=== PATIENT | female | born 1985 | race Hispanic/Latino ===

== ENCOUNTER 2017-10-04 22:35 | Observation (INO) | payer MEDICAID ==
[~2017-10-04] VITALS: Ht 154.9 cm; Wt 55.8 kg
[2017-10-04 23:29] LABS: BASOPHILS % (AUTO) 0.3 % (0.0-5.0); HEMATOCRIT 28.2 % (36-48); LYMPHOCYTES % (AUTO) 7.2 % (21.0-51.0); MEAN CORPUSCULAR HGB CONC 33.9 g/dL (32.0-36.0); MEAN CORPUSCULAR VOLUME 91.5 fL (79-99); MONOCYTES % (AUTO) 3.4 % (3.0-13.0); NEUTROPHILS % (AUTO) 89.1 % (40.0-77.0); PLATELET COUNT (AUTO) 228 K/uL (130-400); RED BLOOD CELL COUNT(AUTO) 3.08 MIL/uL (4.00-5.50); RED CELL DISTRIBUTION WIDTH 13.5 % (11.0-15.5); WHITE BLOOD COUNT (AUTO) 14.2 K/uL (4.8-10.8)
[2017-10-04] MEDS ORDERED: DICYCLOMINE HCL 20 MG TAB ONE (23:31)
[2017-10-04] MEDS ORDERED: ONDANSETRON HCL 4 MG/2 ML VIAL ONE (23:31)
[2017-10-04] MEDS ORDERED: SODIUM CHLORIDE 0.9% 1000ML 1,000 ML IV ONE (23:31)
[2017-10-04 23:38] LABS: APPEARANCE,URINE Cloudy (CLEAR); BILIRUBIN,URINE Negative (NEGATIVE); COLOR,URINE Dark Yellow (YELLOW); GLUCOSE, URINE (UA) Negative (NEGATIVE); KETONES,URINE 40 mg/dL (NEGATIVE); LEUKOCYTE ESTERASE ,URINE Negative (NEGATIVE); NITRATE,URINE Negative (NEGATIVE); OCCULT BLOOD,URINE Large (NEGATIVE); PH,URINE 5.5 (5.0-8.0); PROTEIN,URINE Trace (NEGATIVE)
[2017-10-04 23:40] LABS: CREATININE 0.9 mg/dL (0.5-1.5); POTASSIUM 3.6 mmol/L (3.5-5.1)
[2017-10-04 23:52] LABS: BACTERIA,URINE Few /HPF (None Seen); WBC,URINE None Seen /HPF (0-1)
[2017-10-04 23:53] LABS: SQUAMOUS EPITHELIAL CELL,UR Many /LPF (0-2)
[2017-10-05] VITALS (23 sets, daily range): BP systolic 91–139; BP diastolic 53–85
[2017-10-05 00:06] LABS: ALBUMIN 3.7 g/dL (3.5-5.0); BILIRUBIN,DIRECT 0.1 mg/dL (0.0-0.3); BILIRUBIN,TOTAL 0.6 mg/dL (0.2-1.0); TOTAL PROTEIN, SERUM 6.8 g/dL (6.0-8.3)
[2017-10-05] MEDS ORDERED: DEXAMETHASONE SOD PHOSPHATE 10MG/ML 1ML VIAL ONE (06:06)
[2017-10-05] MEDS ORDERED: MIDAZOLAM HCL 1 MG/ML 2ML VIAL ONE (06:07)
[2017-10-05] MEDS ORDERED: LIDOCAINE HCL 2% JELLY 5 ML ONE (06:07)
[2017-10-05] MEDS ORDERED: ONDANSETRON HCL 4 MG/2 ML VIAL ONE (06:07)
[2017-10-05] MEDS ORDERED: LIDOCAINE HCL MPF 1% 5ML VIAL ONE (06:07)
[2017-10-05] MEDS ORDERED: PROPOFOL 10 MG/ML 20ML VIAL IV ONE (06:07)
[2017-10-05] MEDS ORDERED: GLYCOPYRROLATE 0.2 MG/ML 5 ML VIAL ONE (06:07)
[2017-10-05] MEDS ORDERED: ROCURONIUM BROMIDE 10MG/1ML 5ML VL ONE (06:07)
[2017-10-05] MEDS ORDERED: LIDOCAINE PF 2% 5ML ABBOJECT ONE (06:07)
[2017-10-05] MEDS ORDERED: NEOSTIGMINE METHYLSULFATE 1MG/ML IV ONE (06:07)
[2017-10-05] MEDS ORDERED: FENTANYL CITRATE PF 50 MCG/1 ML 2ML VIAL ONE ×2 (06:08→07:06)
[2017-10-05] MEDS ORDERED: CEFAZOLIN SODIUM 1 GM VIAL ONE (06:21)
[2017-10-05] MEDS ORDERED: CALDOLOR 800MG+NS 250ML 250 ML IV ONE (07:15)
[2017-10-05] MEDS ORDERED: MEPERIDINE-PF 25 MG/ML SYG ONE ×2 (07:52→08:04)
[2017-10-05] MEDS ORDERED: PREN-66 PO (09:02)
[2017-10-05] MEDS ORDERED: MORPHINE SULFATE 2 MG/ML 1ML SYG IVP PRN (09:30)
[2017-10-05] MEDS ORDERED: ACETAMINOPHEN-CODEINE 300/30MG TAB PO PRN (09:30)
[2017-10-05] MEDS: ACETAMINOPHEN-CODEINE 300/30MG TAB PO PRN ×2 (15:21→21:32)
[2017-10-06 03:12] VITALS: BP 98/68
[2017-10-06 06:44] LABS: BASOPHILS % (AUTO) 0.2 % (0.0-5.0); EOSINOPHILS % (AUTO) 0.2 % (0.0-8.0); LYMPHOCYTES % (AUTO) 36.6 % (21.0-51.0); MEAN CORPUSCULAR HEMOGLOBIN 31.9 pg (27.0-33.0); MEAN CORPUSCULAR HGB CONC 34.2 g/dL (32.0-36.0); MEAN CORPUSCULAR VOLUME 93.3 fL (79-99); MONOCYTES % (AUTO) 7.5 % (3.0-13.0); NEUTROPHILS % (AUTO) 55.5 % (40.0-77.0); PLATELET COUNT (AUTO) 153 K/uL (130-400); RED BLOOD CELL COUNT(AUTO) 2.21 MIL/uL (4.00-5.50); RED CELL DISTRIBUTION WIDTH 13.7 % (11.0-15.5); WHITE BLOOD COUNT (AUTO) 8.3 K/uL (4.8-10.8)
[2017-10-06 06:57] LABS: HEMATOCRIT 20.6 % (36-48)
[2017-10-06 07:36] VITALS: BP 90/55
[2017-10-06 11:29] VITALS: BP 107/59
[2017-10-06 15:37] VITALS: BP 114/67
[2017-10-06] MEDS ORDERED: IBUP-2070 PO (17:45)
[2017-10-06] MEDS ORDERED: ACET1TAB12 PO (17:46)
== END 2017-10-06 18:30 | disposition home or self-care (01) ==
LOC: EDH 22:35 → WSH 22:36
PROVIDERS: ADMIT Obstetrics & Gynecology; ATTEND Obstetrics & Gynecology
DX: O00.101 Right tubal pregnancy without intrauterine pregnancy (principal); Z3A.31 31 weeks gestation of pregnancy
CPT/HCPCS: 36415 ×2; 59151; 76801; 80048; 80076; 81001; 83690; 84702; 85025 ×2; 86900; 86901; 88305; A4344; A4452; A4649 ×3; C1769 ×2; G0378 ×44; J0690; J1100; J1741; J2001; J2175 ×2; J2250; J2405 ×2; J2704; J2710; J3010 ×2; J3490 ×3; J7030 ×2